=== PATIENT | female | born 1965 | race Caucasian/White ===

== ENCOUNTER 2024-10-13 17:51 | Outpatient (CLI) | payer OTHER, SELFPAY | END 2024-10-13 17:52 | disposition home or self-care (01) | PROVIDERS: PCP Nurse Practitioner Family; Visit Provider Nurse Practitioner Family | DX: R41.3 Other amnesia (principal); R53.83 Other fatigue | CPT/HCPCS: 80053; 82306; 82728; 84443; 85025; 85651; 86140; 86618; 87468; 87469; 87484; 87798 ==

== ENCOUNTER 2024-11-03 16:52 | Outpatient (CLI) | payer OTHER, SELFPAY ==
--- NOTE | 2024-11-03 17:30 | CRLHL7_ITS ---
For Patients: As a result of the Century Cures Act, medical imaging exams and procedure reports are released immediately into your electronic medical record. You may view this report before your referring provider. If you have questions, please contact your health care provider. INDICATION: Amnesia. TECHNIQUE: Multiplanar MRI of the brain was performed without the administration of intravenous contrast. COMPARISON: None. FINDINGS: No evidence of acute infarction or intracranial hemorrhage. No edema of mass effect. Mild scattered and patchy T2/FLAIR hyperintensities in the subcortical and periventricular white matter. While nonspecific, these can be seen as sequela of chronic small vessel ischemia. The ventricles and sulci are prominent and proportionate reflecting mild diffuse brain volume loss. No significant paranasal sinus mucosal thickening/secretions. No evidence of acute orbital pathology. No significant mastoid effusion. No suspicious marrow signal abnormality. IMPRESSION: 1. No acute intracranial abnormality. 2. Mild nonspecific white matter change that can be seen as sequela of chronic small vessel ischemia. 3. Mild diffuse brain volume loss. Dictated by Mike Cruz MD @ 11/06/2024 8:50:44 AM (Electronically Signed)
== END 2024-11-03 16:53 | disposition home or self-care (01) ==
LOC: MRI 16:52
PROVIDERS: PCP Nurse Practitioner Family; Visit Provider Nurse Practitioner Family
DX: R41.3 Other amnesia (principal); I67.82 Cerebral ischemia
CPT/HCPCS: 70551